=== PATIENT | female | born 1960 | race Two or more races ===

== ENCOUNTER → 2018-05-16 | Emergency (ER) | payer OTHER ==
[~2018-05-16] VITALS: Ht 162.6 cm; Wt 64.4 kg
[~2018-05-16] MED LIST: ATIVAN1 M1; BONIVA150 MG; GABAPENTIN600 MG; PREMARIN1.25 MG; TRAMADOL HCL50 MG
== END | disposition left against medical advice (07) ==
LOC: ER 21:29 → EDBD 22:45 → ER 22:45
DX: R10.13 Epigastric pain (principal)